=== PATIENT | female | born 1990 | race American Indian/Alaskan Native ===

== ENCOUNTER 2017-09-15 16:21 | Emergency (ER) | payer MEDICAID, OTHER ==
[2017-09-15 16:27] VITALS: BMI 24.0
[2017-09-15 16:29] VITALS: PULSE 76; RESP 16; O2SAT 100
--- NOTE | 2017-09-15 17:45 | C.PDOC ---
History Of Present Illness 27 y/o female with PMH of Asthma presents to ED with complaints of left sided chest pain, left arm pain and right leg pain since yesterday. Patient states right leg pain developed while she was driving yesterday and describes it as sharp pain radiating from knee to thigh. Patient took Tylenol with relief but pain came back today. Chest pain is intermittently sharp with no associated SOB. Patient states she has had similar symptoms in the past, but have resolved. LMP 09/03/17 Time Seen by Provider: 09/15/17 17:03 Chief Complaint (Nursing): Chest Pain History Per: Patient History/Exam Limitations: no limitations Onset/Duration Of Symptoms: Days Current Symptoms Are (Timing): Still Present Quality: Tightness, "Pain" Past Medical History Reviewed: Historical Data, Nursing Documentation, Vital Signs Vital Signs: Last Vital Signs Temp 97.3 F L 09/15/17 16:27 Pulse 76 09/15/17 16:27 Resp 16 09/15/17 16:27 BP 102/69 09/15/17 16:27 Pulse Ox 100 09/15/17 17:49 - Medical History PMH: Asthma Surgical History: No Surg Hx Family History: States: No Known Family Hx - Social History Hx Alcohol Use: No Hx Substance Use: No - Immunization History Hx Tetanus Toxoid Vaccination: No Hx Influenza Vaccination: No Hx Pneumococcal Vaccination: No Review Of Systems Constitutional: Negative for: Fever, Chills Cardiovascular: Positive for: Chest Pain Respiratory: Negative for: Shortness of Breath Gastrointestinal: Negative for: Nausea, Vomiting Musculoskeletal: Positive for: Arm Pain, Leg Pain Skin: Negative for: Rash Neurological: Negative for: Weakness, Numbness Physical Exam - Physical Exam Appears: Non-toxic, No Acute Distress Skin: Warm, Dry, No Rash Head: Normacephalic Eye(s): bilateral: Normal Inspection, EOMI Oral Mucosa: Moist Neck: Normal ROM, Supple Chest: Symmetrical Cardiovascular: Rhythm Regular Respiratory: Normal Breath Sounds, No Rales, No Rhonchi, No Wheezing Gastrointestinal/Abdominal: Soft, No Tenderness, No Distention, No Guarding, No Rebound Back: Normal Inspection, No Vertebral Tenderness, No Paraspinal Tenderness Extremity: Bilateral: Atraumatic, No Pedal Edema, Normal Color And Temperature, Normal ROM, Other (no calf pain) Neurological/Psych: Oriented x3, Normal Speech Gait: Steady ED Course And Treatment - Laboratory Results Result Diagrams: 09/15/17 17:58 Lab Interpretation: No Acute Changes O2 Sat by Pulse Oximetry: 100 (RA) Pulse Ox Interpretation: Normal Medical Decision Making Medical Decision Making: Impression: chest pain for 2 days Plan: ECG, CXR, Aspirin, Blood Work Progress: EKG is Ns at 79 bpm with sinus arrhythmia,, normal axis, no ST-T changes Lab calls to state CMP is hemolyzed Patient signed out to Dr Ross pending labs Disposition - Disposition Disposition Time: 19:03 Condition: STABLE Forms: [facility] (Ethiopian) - POA Present On Arrival: None - Clinical Impression Clinical Impression: Chest pain - 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 - Scribe Statement The provider has reviewed the documentation as recorded by the Scribsukumar Potts All medical record entries made by the Scribe were at my direction and personally dictated by me. I have reviewed the chart and agree that the record accurately reflects my personal performance of the history, physical exam, medical decision making, and the department course for this patient. I have also personally directed, reviewed, and agree with the discharge instructions and disposition. Physician Patient Turnover Patient Signed Over To: Isaac Ross Handoff Comments: Pending labs, re-eval and dispo
[2017-09-15 18:08] LABS: HEMATOCRIT 40.5 % (34.0-47.0); MEAN CELL VOLUME 91.8 fL (81.0-99.0); MEAN CORPUSCULAR HEMOGLOBIN 30.2 pg (27.0-31.0); MEAN CORPUSCULAR HGB CONC 32.9 g/dL (33.0-37.0); MEAN PLATELET VOLUME 10.2 fL (7.2-11.7); RED CELL DISTRIBUTION WIDTH 13.3 % (11.5-14.5); WHITE BLOOD COUNT 6.4 K/uL (4.8-10.8)
[2017-09-15 20:00] LABS: ALB/GLOB RATIO 1.5 (1.0-2.1); ALKALINE PHOSPHATASE 60 U/L (38-126); ALT/SGPT 29 U/L (9-52); AST/SGOT 16 U/L (14-36); BILIRUBIN,TOTAL 0.7 mg/dL (0.2-1.3); BLOOD UREA NITROGEN 16 mg/dL (7-17); CALCIUM 8.7 mg/dl (8.6-10.4); CARBON DIOXIDE 23 mmol/L (22-30); CHLORIDE 102 mmol/L (98-107); GFR AFRICAN-AMERICAN > 60; GLUCOSE,RANDOM 80 mg/dL (65-105); SODIUM 135 mmol/L (132-148); TOTAL PROTEIN 6.8 g/dL (6.3-8.3)
[2017-09-15 20:54] VITALS: BP 125/79; TEMP 98.1
--- NOTE | 2017-09-16 09:17 | RAD ---
HISTORY: pain COMPARISON: No prior. TECHNIQUE: Chest PA and lateral FINDINGS: LUNGS: No focal infiltrate or effusion. Bibasilar breast and nipple shadows. PLEURA: No significant pleural effusion identified. No pneumothorax apparent. CARDIOVASCULAR: Normal. OSSEOUS STRUCTURES: No significant abnormalities. VISUALIZED UPPER ABDOMEN: Normal. OTHER FINDINGS: None. IMPRESSION: No active disease.
--- NOTE | 2017-09-16 18:56 | CARD ---
APPROVED REPORT EKG Measurement Heart [id number] <Conclusion> Normal sinus rhythm with sinus Normal Electrocardiogram
== END 2017-09-15 20:55 | disposition home or self-care (01) ==
LOC: C.ER 16:21
DX: R07.9 Chest pain, unspecified (principal)

== ENCOUNTER 2017-11-18 01:53 | Emergency (ER) | payer SELFPAY ==
[2017-11-18 01:53] VITALS: BMI 24.0
--- NOTE | 2017-11-18 03:37 | C.PDOC ---
History Of Present Illness 27 year old female presents to ED with complaints of sore throat x3 days and has no past medical history. Notes pain with swallowing. (-) URI, earache, or fever. PCP: Anival Alvares Time Seen by Provider: 11/18/17 03:03 Chief Complaint (Nursing): ENT Problem History Per: Patient History/Exam Limitations: None Onset/Duration Of Symptoms: Days (X3) Current Symptoms Are (Timing): Gone Quality (Ear): denies: Pain W/Touch Quality (Mouth/Throat): denies: Tenderness Symptoms Have Been: Continuous Past Medical History Reviewed: Historical Data, Nursing Documentation, Vital Signs Vital Signs: Last Vital Signs Temp 98.3 F 11/18/17 03:50 Pulse 77 11/18/17 03:50 Resp 17 11/18/17 03:50 BP 122/63 11/18/17 03:50 Pulse Ox 100 11/18/17 05:42 - Medical History PMH: Asthma Surgical History: No Surg Hx Family History: States: Unknown Family Hx - Social History Hx Alcohol Use: No Hx Substance Use: No - Immunization History Hx Tetanus Toxoid Vaccination: No Hx Influenza Vaccination: No Hx Pneumococcal Vaccination: No Review Of Systems Except As Marked, All Systems Reviewed And Found Negative. Constitutional: Negative for: Fever ENT: Positive for: Throat Pain, Other ((+) pain with swelling). Negative for: Ear Pain Respiratory: Negative for: Cough, Shortness of Breath, Wheezing Physical Exam - Physical Exam Appears: No Acute Distress Skin: Normal Color Ear(s): Bilateral: Normal Nose: Normal Oral Mucosa: Moist Tongue: Normal Appearing Lips: Normal Appearing Throat: No Normal, Erythema (enlarged tonsils with erythema), Exudate (exudates on left tonsil), Other (Uvula midline) Neck: Normal, Normal ROM ED Course And Treatment O2 Sat by Pulse Oximetry: 100 (RA) Pulse Ox Interpretation: Normal Medical Decision Making Medical Decision Makin Initial plan: * Motrin 600mg PO * Penicillin 500mg PO * Re-eval 0332 Upon re-evaluation, patient feels better and is stable for discharge. Advised patient to follow up with PMD. Disposition Counseled Patient/Family Regarding: Diagnosis, Need For Followup, Rx Given - Disposition Disposition: HOME/ ROUTINE Disposition Time: 03:32 Condition: STABLE Additional Instructions: Increase PO fluids Gargle with warm salt water Follow up with PMD Return to ER if worse Prescriptions: Ibuprofen [Motrin] 600 mg PO Q6H #20 tab Penicillin VK [Penicillin VK Tab] 500 mg PO Q6H #28 tab Instructions: Tonsillitis (ED) Forms: [facility] (Zambian) - Clinical Impression Clinical Impression: Exudative tonsillitis - Scribe Statement The provider has reviewed the documentation as recorded by the Scribe Davida Torres
[2017-11-18 03:53] VITALS: BP 122/63; PULSE 77; RESP 17; TEMP 98.3
[2017-11-18 05:38] VITALS: O2SAT 100
== END 2017-11-18 03:53 | disposition home or self-care (01) ==
LOC: C.ER 01:53
DX: J03.90 Acute tonsillitis, unspecified (principal)

== ENCOUNTER 2019-01-10 19:56 | Emergency (ER) | payer MEDICAID ==
[2019-01-10 19:58] VITALS: BMI 24.0
[2019-01-10 20:19] VITALS: O2SAT 100
[2019-01-10] MEDS ORDERED: Aspirin 325 mg EC Tablets PO STA (20:35)
--- NOTE | 2019-01-10 20:57 | C.PDOC ---
History Of Present Illness 28 year old female presents to the ED with PMHx of asthma presents to the ED complaining of left neck, left sided chest pain, left arm pain, and left thigh pain since last night. She describes it as sharp pain radiating from chest to thigh and left arm. Patient took 2 Motrins and felt little relief. Chest pain is intermittently sharp with no associated SOB. Patient states she has had similar symptoms in the past (Last episode in 2017- seen in ED- cardiac workup neg). She denies cardiac follow up. She denies recent illness, recent travel, sick contacts, fever, chills, headache, dizziness, N/V/D, abdominal pain, and trauma/injury. LMP 12/19/18. Time Seen by Provider: 01/10/19 20:15 Chief Complaint (Nursing): Upper Extremity Problem/Injury History Per: Patient History/Exam Limitations: no limitations Onset/Duration Of Symptoms: Days Current Symptoms Are (Timing): Still Present Quality: Sharp Severity: Severe Pain Scale Rating Of: 9 Exacerbating Factor(s): Nothing Recent travel outside of the [place]: No Additional History Per: Prior Records Past Medical History Reviewed: Historical Data, Nursing Documentation, Vital Signs Vital Signs: Last Vital Signs Temp 97.6 F 01/10/19 20:11 Pulse 70 01/10/19 20:11 Resp 20 01/10/19 20:11 BP 104/71 01/10/19 20:11 Pulse Ox 100 01/10/19 20:11 - Medical History PMH: Asthma Surgical History: No Surg Hx Family History: States: No Known Family Hx - Social History Hx Tobacco Use: No Hx Alcohol Use: No Hx Substance Use: No - Immunization History Hx Tetanus Toxoid Vaccination: No Hx Influenza Vaccination: No Hx Pneumococcal Vaccination: No Review Of Systems Constitutional: Negative for: Fever, Chills Cardiovascular: Positive for: Chest Pain. Negative for: Palpitations, Light Headedness Respiratory: Negative for: Cough, Shortness of Breath Gastrointestinal: Negative for: Nausea, Vomiting, Abdominal Pain, Diarrhea Genitourinary: Negative for: Dysuria, Hematuria Musculoskeletal: Positive for: Neck Pain (left), Arm Pain (left ), Leg Pain (left thigh ) Skin: Negative for: Rash Neurological: Positive for: Numbness. Negative for: Weakness, Headache, Dizziness Physical Exam - Physical Exam Appears: Non-toxic, No Acute Distress Skin: Normal Color, Warm, Dry Head: Atraumatic, Normacephalic Eye(s): bilateral: Normal Inspection, PERRL Nose: No Discharge Oral Mucosa: Moist Throat: Normal, No Erythema Neck: Normal ROM, Supple Chest: Symmetrical Cardiovascular: Rhythm Regular Respiratory: Normal Breath Sounds, No Wheezing Gastrointestinal/Abdominal: Soft, No Tenderness Back: No CVA Tenderness Extremity: No Pedal Edema, No Calf Tenderness, Capillary Refill (less than 2 seconds), No Swelling Extremity: Bilateral: Atraumatic, Normal Color And Temperature, Normal ROM Neurological/Psych: Oriented x3, Normal Speech, Normal Cognition, Normal Motor, Normal Sensation Gait: Steady ED Course And Treatment - Laboratory Results Result Diagrams: 01/10/19 20:51 01/10/19 20:51 ECG: Interpreted By Me, Viewed By Me ECG Rhythm: Sinus Rhythm ECG Interpretation: No Acute Changes Rate From EC O2 Sat by Pulse Oximetry: 100 (RA) Pulse Ox Interpretation: Normal - Radiology CXR: Interpreted by Me, Viewed By Me CXR Interpretation: Yes: No Acute Disease Medical Decision Making Medical Decision Making: Plan - Labs- elevated D-dimer - Ekg- neg - CXR- neg - Aspirin 325mg PO CT angio ordered to r/o PE pending Handoff to Dr. 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 - Scribe Statement The provider has reviewed the documentation as recorded by the Claribel Shelton Physician Patient Turnover Patient Signed Over To: Norman Veliz Handoff Comments: pending CT angio
[2019-01-10 21:05] LABS: BASO % 0.5 % (0.0-2.0); EOS # 0.2 K/uL (0.0-0.7); EOS % 2.3 % (0.0-4.0); HEMOGLOBIN 13.2 g/dL (11.0-16.0); LYMPH # 2.6 K/uL (1.0-4.3); LYMPH % 38.3 % (20.0-40.0); MEAN CELL VOLUME 94.3 fL (81.0-99.0); MEAN CORPUSCULAR HEMOGLOBIN 31.1 pg (27.0-31.0); MEAN PLATELET VOLUME 9.4 fL (7.2-11.7); MONO # 0.6 K/uL (0.0-0.8); MONO % 8.5 % (0.0-10.0); NEUT # 3.4 K/uL (1.8-7.0); NEUT % 50.4 % (50.0-75.0); RBC 4.25 Mil/uL (3.80-5.20); RED CELL DISTRIBUTION WIDTH 13.3 % (11.5-14.5); WHITE BLOOD COUNT 6.8 K/uL (4.8-10.8)
[2019-01-10 21:13] LABS: ALB/GLOB RATIO 1.5 (1.0-2.1); ALBUMIN 4.3 g/dL (3.5-5.0); ALT/SGPT 18 U/L (9-52); AST/SGOT 21 U/L (14-36); BLOOD UREA NITROGEN 20 mg/dL (7-17); CALCIUM 9.7 mg/dl (8.6-10.4); GFR NON-AFRICAN AMERICAN > 60
--- NOTE | 2019-01-10 21:20 | C.PDOC ---
Chief Complaint (Nursing): Upper Extremity Problem/Injury Past Medical History Vital Signs: Last Vital Signs Temp 97.6 F 01/10/19 20:11 Pulse 70 01/10/19 20:11 Resp 20 01/10/19 20:11 BP 104/71 01/10/19 20:11 Pulse Ox 100 01/10/19 20:11 - Medical History PMH: Asthma Family History: States: Unknown Family Hx - Social History Hx Alcohol Use: No Hx Substance Use: No - Immunization History Hx Tetanus Toxoid Vaccination: No Hx Influenza Vaccination: No Hx Pneumococcal Vaccination: No ED Course And Treatment O2 Sat by Pulse Oximetry: 100 Disposition - Disposition
[2019-01-10] MEDS ORDERED: Iodixanol 320 MG/ML 100 ML BOTTLE IV ONE (22:40)
[2019-01-10 23:22] VITALS: BP 100/68; PULSE 74; RESP 18; TEMP 97.7
[2019-01-10] MEDS ORDERED: Enoxaparin 150 mg Syringe SC STA (23:22)
[2019-01-10] MEDS ORDERED: Enoxaparin 80 mg Syringe ONE (23:29)
--- NOTE | 2019-01-11 10:34 | RAD ---
HISTORY: chest pain COMPARISON: Chest x-ray performed 09/15/17 TECHNIQUE: Chest PA and lateral FINDINGS: LUNGS: Mild atelectasis, left lung base. Please note that chest x-ray has limited sensitivity for the detection of pulmonary masses. PLEURA: No significant pleural effusion identified. No definite pneumothorax . CARDIOVASCULAR: The cardiomediastinal silhouette appears within normal limits of size. No atherosclerotic calcification present. OSSEOUS STRUCTURES: No acute osseous abnormality identified. VISUALIZED UPPER ABDOMEN: Unremarkable. OTHER FINDINGS: None. IMPRESSION: Mild atelectasis, left lung base.
--- NOTE | 2019-01-11 11:45 | CT ---
Date of service: 01/10/2019 CTA chest PE protocol Indication: r/o PE Technique: Contiguous axial images were obtained through the chest with intravenous contrast enhancement. Sagittal and coronal reconstructions were generated and reviewed. This CT exam was performed using 1 or more of the following dose reduction techniques: Automated exposure control, adjustment of the MAA and/or kV according to patient size, and/or use of iterative reconstruction technique. IV contrast: 100 mL Visipaque 320 IV Radiation dose (DLP): 395.18 MGy-cm. Comparison: Chest x-ray performed 01/10/18 Findings: Visualized portions of the inferior thyroid gland appear unremarkable. The mediastinal and hilar vascular structures appear within normal limits. The heart appears within normal limits of size. Sub cm mediastinal/prevascular lymph nodes, nonspecific. No large central or segmental pulmonary embolus evident. No focal consolidation. No pleural effusion. No pneumothorax. No suspicious pulmonary nodules measuring greater than 5 mm. Limited visualized portions of the upper abdomen appear grossly unremarkable. No acute osseous abnormality is detected. Impression: No large central or segmental pulmonary embolus identified. Sub cm mediastinal/prevascular lymph nodes, nonspecific. Preliminary impression was provided by [facility].
== END 2019-01-10 23:35 | disposition home or self-care (01) ==
LOC: C.ER 19:56
DX: R07.9 Chest pain, unspecified (principal); M54.2 Cervicalgia; M79.652 Pain in left thigh
CPT/HCPCS: 71046; 71275; 80053; 81025; 84484; 85025; 85378; 96372; 99284; J1650; Q9967

== ENCOUNTER 2019-01-11 09:33 | Emergency (ER) | payer MEDICAID ==
[2019-01-11 09:48] VITALS: BMI 24.9
--- NOTE | 2019-01-11 11:11 | C.PDOC ---
History Of Present Illness 28 year old female presents to ED requesting venous Doppler of the left lower extremity. Patient was instructed to return to ED for venous Doppler after having an elevated d-dimer yesterday. Patient was in the ED yesterday complaining of chest pain and had an extensive work up including CT of the chest to rule out PE. Patient also came to the ED for left arm, neck, and thigh pain for the past 2 days. Patient has been taking Motrin and Alleve. Patient denies any recent travel. Patient has a PMHx of asthma. She denies fever, chills, nausea, vomiting, dizziness, syncope and trauma. Chief Complaint (Nursing): Lower Extremity Problem/Injury History Per: Patient History/Exam Limitations: no limitations Onset/Duration Of Symptoms: Days (2) Current Symptoms Are (Timing): Still Present Past Medical History Reviewed: Historical Data, Nursing Documentation, Vital Signs Vital Signs: Last Vital Signs Temp 98.3 F 01/11/19 09:48 Pulse 76 01/11/19 09:48 Resp 18 01/11/19 09:48 BP 109/75 01/11/19 09:48 Pulse Ox 98 01/11/19 09:48 - Medical History PMH: Asthma Surgical History: No Surg Hx Family History: States: Unknown Family Hx - Social History Hx Tobacco Use: No Hx Alcohol Use: No Hx Substance Use: No - Immunization History Hx Tetanus Toxoid Vaccination: Yes (06/2018) Hx Influenza Vaccination: No Hx Pneumococcal Vaccination: No Review Of Systems Constitutional: Negative for: Fever, Chills, Weakness Cardiovascular: Positive for: Chest Pain Gastrointestinal: Negative for: Nausea, Vomiting Musculoskeletal: Positive for: Neck Pain (left sided), Arm Pain (left), Leg Pain (left) Neurological: Negative for: Weakness, Numbness, Dizziness Physical Exam - Physical Exam Appears: Well, Non-toxic, No Acute Distress Skin: Normal Color, Warm, Dry Head: Atraumatic, Normacephalic Eye(s): bilateral: Normal Inspection, PERRL, EOMI Oral Mucosa: Moist Neck: Normal ROM, Supple Chest: Symmetrical, No Deformity Cardiovascular: Rhythm Regular, No Murmur Respiratory: No Accessory Muscle Use, No Rales, No Rhonchi, No Wheezing Gastrointestinal/Abdominal: No Soft, No Tenderness Extremity: Normal ROM (left leg), No Tenderness (left leg), No Other (erythema of the left leg) Extremity: Bilateral: Atraumatic, Normal Color And Temperature, Normal ROM Pulses: Left Dorsalis Pedis: Normal, Right Dorsalis Pedis: Normal Neurological/Psych: Oriented x3, Normal Speech, Normal Cognition Gait: Steady ED Course And Treatment O2 Sat by Pulse Oximetry: 98 (in RA) Medical Decision Making Medical Decision Making: Impression: 28 year old female presents to ED requesting venous Doppler of the left lower extremity. Plan: Venous doppler of the left lower extremity Doppler negative, results d/w patient. Patient to f/u w/her pcp and RTED for new, worsening or concerning symptoms. She verbalized understanding. Disposition Counseled Patient/Family Regarding: Studies Performed, Diagnosis, Need For Followup - Disposition Referrals: Anival Alvares MD [Staff Provider] - Disposition: HOME/ ROUTINE Disposition Time: 11:20 Condition: GOOD Additional Instructions: TASH FUENTES, thank you for letting us take care of you today. Your provider was Florida Borges MD and you were treated for SENT BY PMD/FOLLOW UP. The emergency medical care you received today was directed at your acute symptoms. If you were prescribed any medication, please fill it and take as directed. It may take several days for your symptoms to resolve. Return to the Emergency Department if your symptoms worsen, do not improve, or if you have any other problems. Please contact your doctor in 1-2 days for a follow up appointment. Bring any paperwork you were given at discharge with you along with any medications you are taking to your follow up visit. Our treatment cannot replace ongoing medical care by a primary care provider outside of the emergency department. Thank you for allowing the [facility] team to be part of your care today. Instructions: Muscle and Bone Pain (DC) Forms: [facility] (Luxembourgish), General Discharge Instructions - POA Present On Arrival: None - Clinical Impression Clinical Impression: Left leg pain - Scribe Statement The provider has reviewed the documentation as recorded by the Scribe (Petrona Tenorio) All medical record entries made by the Scribe were at my direction and personally dictated by me. I have reviewed the chart and agree that the record accurately reflects my personal performance of the history, physical exam, medical decision making, and the department course for this patient. I have also personally directed, reviewed, and agree with the discharge instructions and disposition.
[2019-01-11 11:39] VITALS: BP 106/71; PULSE 78; RESP 16; TEMP 98.4
[2019-01-11 18:36] VITALS: O2SAT 98
--- NOTE | 2019-01-12 11:48 | VASCLAB ---
Date of service: 01/11/2019 PROCEDURE: Left Lower Extremity Venous Duplex Exam. HISTORY: Pain PRIORS: None. TECHNIQUE: Left common femoral, femoral, popliteal and posterior tibial, peroneal and great saphenous veins were evaluated. Flow was assessed with color Doppler, compressibility, assessment of phasic flow and augmentation response. Report prepared by YENIFER Strauss FINDINGS: LEFT: 1. Common Femoral Vein: 1.1. Compressibility - Fully compressible: Thrombus - None : Flow - Phasic: Augmentation -Normal: Reflux - None. 2. Femoral Vein: 2.1. Compressibility - Fully compressible: Thrombus - None: Flow - Phasic: Augmentation -Normal: Reflux - None. 3. Popliteal Vein: 3.1. Compressibility - Fully compressible: Thrombus - None: Flow - Phasic: Augmentation -Normal: Reflux - None. 4. Posterior Tibial Vein: 4.1. Compressibility - Fully compressible: Thrombus - None: Flow - Phasic: Augmentation -Normal: Reflux - None. 5. Peroneal Vein: 5.1. Compressibility - Fully compressible: Thrombus - None: Flow - Phasic: Augmentation -Normal: Reflux - None. 6. Great Saphenous Vein: 6.1. Compressibility - Fully compressible: Thrombus - None: Flow - Phasic: Augmentation - Normal: Reflux - None. OTHER FINDINGS: Normal venous flow noted in the right common femoral vein. IMPRESSION: No evidence of deep or superficial vein thrombosis of the left lower extremity with excellent venous flow. Normal valve function noted of the left side.
== END 2019-01-11 11:39 | disposition home or self-care (01) ==
LOC: C.ER 09:33
DX: M79.605 Pain in left leg (principal)